=== PATIENT | female | born 1985 | race African-American/Black ===

== ENCOUNTER 2023-12-03 11:04 | Emergency (ER) | payer MEDICAID ==
[~2023-12-03] VITALS: Ht 162.6 cm; Wt 77.0 kg
[~2023-12-03 11:04] MED LIST: ACET-3161 PO; IBUP-2028 PO
[2023-12-03 11:12] VITALS: O2SAT 100
[2023-12-03] MEDS ORDERED: IBUP-2030 MT (12:05)
[2023-12-03] MEDS: IBUPROFEN 800MG TABLET PO ONE (12:41)
[2023-12-03 12:42] VITALS: BP 138/87; PULSE 71; RESP 16; TEMP 36.44736; O2SAT 100
== END 2023-12-03 12:42 ==
LOC: ER 11:04
DX: M25.512 Pain in left shoulder (principal); F12.90 Cannabis use, unspecified, uncomplicated
CPT/HCPCS: 73030; 81025; 99283

== ENCOUNTER 2024-04-16 17:20 | Emergency (ER) | payer MEDICAID ==
[~2024-04-16] VITALS: Ht 162.6 cm; Wt 77.3 kg
[~2024-04-16 17:20] MED LIST changes: +IBUP-2030 MT
[2024-04-16 17:50] VITALS: TEMP 37.2; O2SAT 100
[2024-04-16 18:05] LABS: BASOPHILS % 0.2 % (0.0-2.0); EOSINOPHILS % 0.3 % (0.0-5.0); HEMATOCRIT. 40.8 % (36.0-48.0); HEMOGLOBIN. 13.5 g/dL (12.0-16.0); LYMPHOCYTES % 21.4 % (20.0-50.0); MEAN CORPUSCULAR HEMOGLOBIN 30.4 pg (28.0-32.0); MEAN PLATELET VOLUME 8.9 fl (7.4-10.4); MONOCYTES % 6.4 % (2.0-8.0); NEUTROPHILS % 71.7 % (40.0-76.0); PLATELET 274 x1000/uL (130-400); RED BLOOD CELL COUNT 4.43 mill/uL (4.2-5.4); RED CELL DISTRIBUTION WIDTH 12.9 % (11.6-14.6); WHITE BLOOD COUNT 5.6 x1000/uL (4.5-11.0)
[2024-04-16 18:14] LABS: CARBON DIOXIDE 25 mEq/L (21-32); CHLORIDE 103 mEq/L (98-107); POTASSIUM 3.7 mEq/L (3.5-5.1); SODIUM 139 mEq/L (136-145)
[2024-04-16 18:15] LABS: CALCIUM 9.6 mg/dL (8.7-10.4)
[2024-04-16 18:19] LABS: CREATININE 0.9 mg/dL (0.6-1.0)
[2024-04-16 18:20] LABS: GLUCOSE 97 mg/dL (70-105); UREA NITROGEN BLOOD 8 mg/dL (9-23)
[2024-04-16 19:01] LABS: HCG SCREEN NEGATIVE
[2024-04-16] MEDS: KETOROLAC 30MG/ML VIAL IM NR (19:08)
[2024-04-16 19:36] LABS: ALANINE AMINOTRANSFERASE 23 IU/L (10-49); ALBUMIN 4.6 g/dL (3.2-4.8); ASPARTATE AMINOTRANSFERASE 23 IU/L (<34); BILIRUBIN DIRECT 0.2 mg/dL (<=3.0); BILIRUBIN TOTAL 0.6 mg/dL (0.1-1.0); PROTEIN TOTAL 8.5 g/dL (6.0-8.3)
[2024-04-16 19:53] LABS: CLARITY URINE CLOUDY (CLEAR); COLOR URINE YELLOW (YELLOW); GLUCOSE URINE NEGATIVE (NEGATIVE); KETONES URINE 3+ (NEGATIVE); LEUKOCYTE ESTERASE URINE NEGATIVE (NEGATIVE); NITRITE URINE NEGATIVE (NEGATIVE); OCCULT BLOOD URINE NEGATIVE (NEGATIVE); PROTEIN URINE NEGATIVE (NEGATIVE); SPECIFIC GRAVITY URINE 1.024 (1.005-1.030); UROBILINOGEN URINE 0.2 E.U./dL (0.2-1.0)
[2024-04-16 20:01] LABS: BACTERIA URINE TRACE; RBC URINE 0-2 /hpf (0-2); SQUAMOUS EPITHELIAL CELL URINE 1+ /lpf (RARE/1+); WBC URINE NONE SEEN /hpf (0-2)
[2024-04-16] MEDS: ONDANSETRON HCL 4MG/2ML INJ IM NR (20:55)
[2024-04-16 20:56] VITALS: BP 134/80; PULSE 89; RESP 17; O2SAT 97
== END 2024-04-16 21:11 | disposition home or self-care (01) ==
LOC: ER 17:30
DX: G89.29 Other chronic pain (principal); R10.84 Generalized abdominal pain; F12.90 Cannabis use, unspecified, uncomplicated; Z79.899 Other long term (current) drug therapy; Z85.43 Personal history of malignant neoplasm of ovary
CPT/HCPCS: 80076; 80048; 81003; 84703; 83690; 85025; 36415; 71045; 74176; 96372; 99285; J1885; J2405; Z7610

== ENCOUNTER 2024-04-23 08:49 | Emergency (ER) | payer MEDICAID ==
[~2024-04-23] VITALS: Ht 162.6 cm; Wt 77.0 kg
[2024-04-23 08:56] VITALS: TEMP 36.7; O2SAT 99
[2024-04-23 08:58] VITALS: O2SAT 97
[2024-04-23 09:32] LABS: BASOPHILS % 0.6 % (0.0-2.0); DIFFERENTIAL COMMENT 0; EOSINOPHILS % 0.3 % (0.0-5.0); HEMATOCRIT. 39.5 % (36.0-48.0); LYMPHOCYTES % 35.6 % (20.0-50.0); MEAN CORPUSCULAR HEMOGLOBIN 29.6 pg (28.0-32.0); MEAN CORPUSCULAR HGB CONC 32.9 g/dL (31.0-37.0); MEAN PLATELET VOLUME 9.1 fl (7.4-10.4); NEUTROPHILS % 51.5 % (40.0-76.0); PLATELET 273 x1000/uL (130-400); RED BLOOD CELL COUNT 4.39 mill/uL (4.2-5.4); RED CELL DISTRIBUTION WIDTH 12.6 % (11.6-14.6); WHITE BLOOD COUNT 3.2 x1000/uL (4.5-11.0)
[2024-04-23 09:40] LABS: CHLORIDE 104 mEq/L (98-107); POTASSIUM 3.4 mEq/L (3.5-5.1); SODIUM 140 mEq/L (136-145)
[2024-04-23 09:41] LABS: CARBON DIOXIDE 27 mEq/L (21-32)
[2024-04-23 09:42] LABS: CALCIUM 9.4 mg/dL (8.7-10.4)
[2024-04-23 09:43] LABS: HCG SCREEN NEGATIVE
[2024-04-23 09:46] LABS: CREATININE 0.8 mg/dL (0.6-1.0); GLUCOSE 112 mg/dL (70-105); UREA NITROGEN BLOOD 8 mg/dL (9-23)
[2024-04-23 10:45] LABS: CLARITY URINE CLEAR (CLEAR); COLOR URINE DARK YELLOW (YELLOW); GLUCOSE URINE NEGATIVE (NEGATIVE); KETONES URINE 1+ (NEGATIVE); LEUKOCYTE ESTERASE URINE NEGATIVE (NEGATIVE); NITRITE URINE NEGATIVE (NEGATIVE); OCCULT BLOOD URINE NEGATIVE (NEGATIVE); PH URINE 5.5 (4.5-8.0); PROTEIN URINE TRACE (NEGATIVE); UROBILINOGEN URINE 0.2 E.U./dL (0.2-1.0)
[2024-04-23 10:57] LABS: BACTERIA URINE 2+; RBC URINE 0-2 /hpf (0-2); SQUAMOUS EPITHELIAL CELL URINE 3+ /lpf (RARE/1+); YEAST URINE NONE SEEN
[2024-04-23 11:42] VITALS: BP 122/87; PULSE 96; RESP 16
[2024-04-23] MEDS: KETOROLAC 30MG/ML VIAL IM NR (11:42)
== END 2024-04-23 11:44 | disposition home or self-care (01) ==
LOC: ER 08:49
DX: G89.29 Other chronic pain (principal); R10.9 Unspecified abdominal pain; F10.90 Alcohol use, unspecified, uncomplicated; F12.90 Cannabis use, unspecified, uncomplicated; Z90.710 Acquired absence of both cervix and uterus; Y90.9 Presence of alcohol in blood, level not specified
CPT/HCPCS: 80048; 81003; 81025; 84703; 85025; 36415; 96372; 99283; J1885; Z7610

== ENCOUNTER 2024-05-11 09:56 | Emergency (ER) | payer MEDICAID, OTHER ==
[~2024-05-11] VITALS: Ht 162.6 cm; Wt 74.4 kg
[2024-05-11 09:59] VITALS: O2SAT 99
[2024-05-11 10:06] VITALS: BP 134/90; PULSE 100; RESP 16; TEMP 37.1; O2SAT 99
[2024-05-11 11:05] LABS: BASOPHILS % 0.5 % (0.0-2.0); DIFFERENTIAL COMMENT 0; EOSINOPHILS % 0.3 % (0.0-5.0); HEMATOCRIT. 39.4 % (36.0-48.0); LYMPHOCYTES % 33.6 % (20.0-50.0); MEAN CORPUSCULAR HEMOGLOBIN 30.2 pg (28.0-32.0); MEAN CORPUSCULAR HGB CONC 33.1 g/dL (31.0-37.0); MEAN CORPUSCULAR VOLUME 91.1 fL (81.0-99.0); MEAN PLATELET VOLUME 8.6 fl (7.4-10.4); MONOCYTES % 8.9 % (2.0-8.0); NEUTROPHILS % 56.7 % (40.0-76.0); PLATELET 247 x1000/uL (130-400); RED BLOOD CELL COUNT 4.33 mill/uL (4.2-5.4); RED CELL DISTRIBUTION WIDTH 13.1 % (11.6-14.6); WHITE BLOOD COUNT 3.7 x1000/uL (4.5-11.0)
[2024-05-11 11:14] LABS: CHLORIDE 104 mEq/L (98-107); SODIUM 139 mEq/L (136-145)
[2024-05-11 11:15] LABS: CARBON DIOXIDE 25 mEq/L (21-32)
[2024-05-11 11:16] LABS: CALCIUM 9.6 mg/dL (8.7-10.4)
[2024-05-11 11:21] LABS: CREATININE 0.8 mg/dL (0.6-1.0); GLUCOSE 96 mg/dL (70-105); UREA NITROGEN BLOOD 7 mg/dL (9-23)
[2024-05-12] MEDS ORDERED: NITR-87 MT (16:21)
== END 2024-05-11 12:25 | disposition home or self-care (01) ==
LOC: ER 09:56
DX: R25.1 Tremor, unspecified (principal); Z90.710 Acquired absence of both cervix and uterus
CPT/HCPCS: 36415; 80048; 83735; 85025; 99283

== ENCOUNTER 2024-05-12 12:24 | Emergency (ER) | payer OTHER ==
[~2024-05-12] VITALS: Ht 162.6 cm; Wt 75.0 kg
[2024-05-12 12:31] VITALS: BP 127/83; RESP 16; TEMP 36.9; O2SAT 100
[2024-05-12 12:38] VITALS: PULSE 98; O2SAT 100
[2024-05-12 13:06] LABS: BASOPHILS % 0.9 % (0.0-2.0); EOSINOPHILS % 0.2 % (0.0-5.0); HEMATOCRIT. 38.8 % (36.0-48.0); HEMOGLOBIN. 12.7 g/dL (12.0-16.0); LYMPHOCYTES % 22.6 % (20.0-50.0); MEAN CORPUSCULAR HEMOGLOBIN 30.3 pg (28.0-32.0); MEAN CORPUSCULAR HGB CONC 32.7 g/dL (31.0-37.0); MEAN CORPUSCULAR VOLUME 92.6 fL (81.0-99.0); MEAN PLATELET VOLUME 8.9 fl (7.4-10.4); MONOCYTES % 7.6 % (2.0-8.0); NEUTROPHILS % 68.7 % (40.0-76.0); PLATELET 264 x1000/uL (130-400); RED BLOOD CELL COUNT 4.19 mill/uL (4.2-5.4); RED CELL DISTRIBUTION WIDTH 13.1 % (11.6-14.6); WHITE BLOOD COUNT 5.3 x1000/uL (4.5-11.0)
[2024-05-12 13:21] LABS: CHLORIDE 105 mEq/L (98-107); POTASSIUM 3.9 mEq/L (3.5-5.1); SODIUM 139 mEq/L (136-145)
[2024-05-12 13:22] LABS: CARBON DIOXIDE 27 mEq/L (21-32)
[2024-05-12 13:23] LABS: CALCIUM 9.6 mg/dL (8.7-10.4)
[2024-05-12 13:27] LABS: CREATININE 0.9 mg/dL (0.6-1.0); GLUCOSE 104 mg/dL (70-105); UREA NITROGEN BLOOD 7 mg/dL (9-23)
[2024-05-12 14:23] LABS: CLARITY URINE CLOUDY (CLEAR); COLOR URINE DARK YELLOW (YELLOW); GLUCOSE URINE NEGATIVE (NEGATIVE); KETONES URINE 1+ (NEGATIVE); LEUKOCYTE ESTERASE URINE 2+ (NEGATIVE); NITRITE URINE NEGATIVE (NEGATIVE); OCCULT BLOOD URINE NEGATIVE (NEGATIVE); PROTEIN URINE 1+ (NEGATIVE); SPECIFIC GRAVITY URINE 1.027 (1.005-1.030); UROBILINOGEN URINE 0.2 E.U./dL (0.2-1.0)
[2024-05-12 14:51] LABS: BACTERIA URINE 4+; SQUAMOUS EPITHELIAL CELL URINE 3+ /lpf (RARE/1+); WBC URINE 15-25 /hpf (0-2); YEAST URINE NONE SEEN
[2024-05-12] MEDS: NITROFURANTOIN 100MG M/M CAPSULE PO ONE (15:53)
[2024-05-12] MEDS: HYDROXYZINE 25MG TABLET PO ONE (15:53)
[2024-05-12] MEDS ORDERED: NITR-87 MT (16:21)
[2024-05-13 09:44] LABS: *AMPHETAMINES SCREEN URINE NEGATIVE (NEGATIVE); *BARBITURATES SCREEN URINE NEGATIVE (NEGATIVE); *BENZODIAZEPINES SCREEN URINE NEGATIVE (NEGATIVE); *COCAINE SCREEN URINE NEGATIVE (NEGATIVE); CANNABINOID URINE SCREEN PRESUMPTIVE POSITIVE (NEGATIVE); ECSTASY MDMA SCREEN URINE NEGATIVE (NEGATIVE); METHADONE URINE SCREEN NEGATIVE (NEGATIVE); OPIATES URINE SCREEN NEGATIVE (NEGATIVE); PHENCYCLIDINE URINE SCREEN NEGATIVE (NEGATIVE)
== END 2024-05-12 16:49 | disposition home or self-care (01) ==
LOC: ER 12:24
DX: N39.0 Urinary tract infection, site not specified (principal); R25.9 Unspecified abnormal involuntary movements; Z90.710 Acquired absence of both cervix and uterus; Z79.899 Other long term (current) drug therapy
CPT/HCPCS: 36415; 80048; 80305; 81003; 81025; 85025; 99284

== ENCOUNTER 2024-05-18 18:39 | Emergency (ER) | payer MEDICAID, OTHER ==
[~2024-05-18] VITALS: Ht 162.6 cm; Wt 77.1 kg
[~2024-05-18 18:39] MED LIST changes: +NITR-87 MT
[2024-05-18 18:47] VITALS: BP 127/85; TEMP 36.8; O2SAT 100
[2024-05-18 18:48] VITALS: PULSE 100; RESP 16; O2SAT 100
[2024-05-18 20:59] LABS: CHLORIDE 104 mEq/L (98-107); POTASSIUM 3.4 mEq/L (3.5-5.1); SODIUM 139 mEq/L (136-145)
[2024-05-18 21:00] LABS: CARBON DIOXIDE 24 mEq/L (21-32)
[2024-05-18 21:01] LABS: CALCIUM 9.2 mg/dL (8.7-10.4)
[2024-05-18 21:05] LABS: CREATININE 0.7 mg/dL (0.6-1.0); GLUCOSE 93 mg/dL (70-105); UREA NITROGEN BLOOD 7 mg/dL (9-23)
[2024-05-18 21:09] LABS: HCG SCREEN NEGATIVE
[2024-05-18 21:10] LABS: BASOPHILS % 0.2 % (0.0-2.0); EOSINOPHILS % 0.4 % (0.0-5.0); HEMOGLOBIN. 12.8 g/dL (12.0-16.0); LYMPHOCYTES % 32.8 % (20.0-50.0); MEAN CORPUSCULAR HEMOGLOBIN 30.2 pg (28.0-32.0); MEAN CORPUSCULAR HGB CONC 32.8 g/dL (31.0-37.0); MEAN CORPUSCULAR VOLUME 92.2 fL (81.0-99.0); MEAN PLATELET VOLUME 8.8 fl (7.4-10.4); MONOCYTES % 5.7 % (2.0-8.0); NEUTROPHILS % 60.9 % (40.0-76.0); PLATELET 265 x1000/uL (130-400); RED BLOOD CELL COUNT 4.23 mill/uL (4.2-5.4); RED CELL DISTRIBUTION WIDTH 13.2 % (11.6-14.6); WHITE BLOOD COUNT 6.7 x1000/uL (4.5-11.0)
[2024-05-18] MEDS: DIPHENHYDRAMINE 50MG/ML VIAL IV ONE (21:32)
[2024-05-18] MEDS: SODIUM CHLORIDE 0.9% 1,000 ML IV ONE (21:32)
[2024-05-18] MEDS: KETOROLAC 15MG/ML VIAL IV ONE (21:32)
[2024-05-18] MEDS: METOCLOPRAMIDE HCL 10MG/2ML VIAL IV ONE (21:32)
[2024-05-18] MEDS: ACETAMINOPHEN 650MG/20.3ML UDC PO ONE (21:32)
[2024-05-18] MEDS ORDERED: CYCL10TA21 MT (22:25)
== END 2024-05-18 23:02 | disposition home or self-care (01) ==
LOC: ER 18:39
DX: G44.209 Tension-type headache, unspecified, not intractable (principal); F12.10 Cannabis abuse, uncomplicated; Z90.710 Acquired absence of both cervix and uterus; Z85.9 Personal history of malignant neoplasm, unspecified
CPT/HCPCS: 99285; 96374; 70450; 96375; 96361; 80048; 84703; 85025; 36415; J1885; J1200; J2765; J7030

== ENCOUNTER 2024-08-11 11:07 | Emergency (ER) | payer MEDICAID, OTHER ==
[~2024-08-11] VITALS: Ht 162.6 cm; Wt 77.1 kg
[~2024-08-11 11:07] MED LIST changes: +CYCL10TA21 MT
[2024-08-11 11:21] VITALS: TEMP 36.6; O2SAT 99
[2024-08-11 13:22] VITALS: BP 116/78; PULSE 73; RESP 16; O2SAT 98
== END 2024-08-11 13:25 | disposition home or self-care (01) ==
LOC: ER 11:07
DX: N64.4 Mastodynia (principal); F10.90 Alcohol use, unspecified, uncomplicated; F12.90 Cannabis use, unspecified, uncomplicated; Z90.710 Acquired absence of both cervix and uterus; Y90.9 Presence of alcohol in blood, level not specified
CPT/HCPCS: 76641; 81025; 99284

== ENCOUNTER 2025-02-20 16:36 | Emergency (ER) | payer MEDICAID ==
[~2025-02-20] VITALS: Ht 167.6 cm; Wt 75.0 kg
[2025-02-20 16:41] VITALS: O2SAT 99
[2025-02-20] MEDS ORDERED: IBUP-2030 MT (17:25)
[2025-02-20] MEDS ORDERED: CYCL10TA21 MT (17:25)
[2025-02-20 17:42] VITALS: BP 110/76; PULSE 78; RESP 18; TEMP 36.8; O2SAT 99
== END 2025-02-20 17:43 | disposition home or self-care (01) ==
LOC: ER 16:36
DX: S81.831A Puncture wound without foreign body, right lower leg, initial encounter (principal); W54.0XXA Bitten by dog, initial encounter; Y93.89 Activity, other specified; Y92.89 Other specified places as the place of occurrence of the external cause; Y99.8 Other external cause status
CPT/HCPCS: 99283